=== PATIENT | female | born 1965 | race African-American/Black ===

== ENCOUNTER 2021-06-27 21:27 | Emergency (ER) | payer SELFPAY ==
[~2021-06-27] VITALS: Ht 162.6 cm; Wt 108.0 kg
[2021-06-27] MEDS ORDERED: HYDROCODONE/ACETAMINOPHEN 5/325MG TABLET PO ONE (23:15)
[2021-06-27 23:48] VITALS: BP 164/77
[2021-06-28] MEDS ORDERED: METH-773 MT (02:18)
[2021-06-28] MEDS ORDERED: LIDO1ADH5 TP (02:18)
[2021-06-28] MEDS ORDERED: NAPR-681 MT (02:18)
== END 2021-06-28 03:02 | disposition home or self-care (01) ==
LOC: ER 21:27
DX: S39.012A Strain of muscle, fascia and tendon of lower back, initial encounter (principal); V49.49XA Driver injured in collision with other motor vehicles in traffic accident, initial encounter; Y93.89 Activity, other specified; Y92.89 Other specified places as the place of occurrence of the external cause; Y99.8 Other external cause status; E78.00 Pure hypercholesterolemia, unspecified; I10 Essential (primary) hypertension; Z90.710 Acquired absence of both cervix and uterus
CPT/HCPCS: 72131; 99284